=== PATIENT | female | born 1995 | race Caucasian/White ===

== ENCOUNTER 2018-04-12 18:27 | Emergency (ER) | payer OTHER ==
[2018-04-12 18:57] LABS: Basophils % (A) 0 %; Eosinophils # (A) 0.1 k/uL (0-0.7); Eosinophils % (A) 1 %; HGB 14.3 gm/dL (11.4-16.0); Lymphocytes # (A) 1.7 k/uL (1.0-4.8); Lymphocytes % (A) 26 %; MCH 29.1 pg (25.0-35.0); MCHC 34.8 g/dL (31.0-37.0); MCV 83.7 fL (80.0-100.0); Monocytes # (A) 0.4 k/uL (0-1.0); Monocytes % (A) 5 %; Neutrophils # (A) 4.6 k/uL (1.3-7.7); Neutrophils % (A) 67 %; Platelet Count 276 k/uL (150-450); RDW 12.7 % (11.5-15.5); WBC 6.8 k/uL (3.8-10.6)
[2018-04-12 19:09] LABS: ALT 81 U/L (9-52); AST 44 U/L (14-36); Albumin 4.5 g/dL (3.5-5.0); Alkaline Phosphatase 80 U/L (38-126); Anion Gap 13 mmol/L; Blood Urea Nitrogen 11 mg/dL (7-17); Calcium 9.4 mg/dL (8.4-10.2); Carbon Dioxide 24 mmol/L (22-30); Chloride 105 mmol/L (98-107); Glucose 123 mg/dL (74-99); Potassium 3.5 mmol/L (3.5-5.1); Sodium 142 mmol/L (137-145); Total Bilirubin 0.4 mg/dL (0.2-1.3); Total Protein 7.8 g/dL (6.3-8.2)
[2018-04-12 19:19] LABS: Creatine Kinase 34 U/L (30-135)
[2018-04-12 19:22] LABS: Partial Thromboplastin Time 23.8 sec (22.0-30.0); Prothrombin Time 10.1 sec (9.0-12.0)
[2018-04-12 19:31] LABS: Creatine Kinase MB <0.2 ng/mL (0.0-2.4); Troponin I <0.012 ng/mL (0.000-0.034)
[2018-04-12 19:59] VITALS: RESP 18
--- NOTE | 2018-04-12 20:25 | ED ---
Chest Pain HPI - General Chief Complaint: Chest Pain Stated Complaint: Chest pain Time Seen by Provider: 04/12/18 19:52 Source: patient, RN notes reviewed Mode of arrival: wheelchair Limitations: no limitations - History of Present Illness Initial Comments: This is a 23-year-old female who presents to the emergency department with chief complaint of chest pain. Patient reports left-sided sharp, stabbing chest pain started an hour and half prior to arrival. Patient states that the chest pain has become less frequent. She denies any shortness of breath. She does state that she did feel nauseous during the initial episode. She states that there is tenderness to the left chest wall. She denies any injuries or trauma. Denies any history of blood clots. Denies recent fevers or chills, abdominal pain, vomiting or diarrhea. Patient does state that she has a history of hypertension and that her medication has recently been changed. - Related Data Home Medications Medication Instructions Recorded Confirmed Cholecalciferol [Vitamin D3] 1,000 unit PO DAILY 04/12/18 04/12/18 DULoxetine HCL [Cymbalta] 20 mg PO BID 04/12/18 04/12/18 amLODIPine BESYLATE [Norvasc] 10 mg PO DAILY 04/12/18 04/12/18 Allergies Allergy/AdvReac Type Severity Reaction Status Date / Time Latex, Natural Rubber Allergy Unknown Verified 04/12/18 19:25 Childhood Sulfa (Sulfonamide Allergy Unknown Verified 04/12/18 19:25 Antibiotics) Childhood Review of Systems ROS Statement: Those systems with pertinent positive or pertinent negative responses have been documented in the HPI. ROS Other: All systems not noted in ROS Statement are negative. EKG Findings - EKG Comments: EKG Findings:: 18:44:04. Sinus tachycardia. Possible inferior infarct, age undetermined. Ventricular rate 104 bpm, CO interval 136, QRS duration 84, QT/ QTC 326/428 Past Medical History Past Medical History: Hypertension History of Any Multi-Drug Resistant Organisms: None Reported Past Surgical History: Section, Cholecystectomy, Hernia Repair, Tonsillectomy Additional Past Surgical History / Comment(s): eye surgery Past Psychological History: No Psychological Hx Reported Smoking Status: Never smoker Past Alcohol Use History: None Reported Past Drug Use History: None Reported General Exam - General Exam Comments Initial Comments: General: Awake and alert, well-developed; in no apparent distress. HEENT: Head atraumatic, normocephalic. Pupils are equal, round and reactive to light. Extraocular movements intact. Oropharynx moist without erythema or exudate. Neck: Supple. Normal ROM. Cardiovascular: Regular rate and rhythm. No murmurs, rubs or gallops. Chest symmetrical. Tenderness on palpation of left chest wall. Respiratory: Lungs clear to auscultation bilaterally. No wheezes, rales or rhonchi. Normal respiratory effort with no use of accessory muscles. Abdomen: Soft, non-tender, non-distended. No rigidity, rebound or guarding. Normal bowel sounds in all 4 quadrants. Musculoskeletal: Normal ROM, no tenderness bilateral upper and lower extremities. Ambulating normally. Skin: [place], warm and dry without rashes or lesions. Neurological: Alert and oriented x3. CN II-XII grossly intact. Speech is fluent and answers are appropriate. No focal neuro deficits. Psychiatric: Normal mood and affect. No overt signs of depression or anxiety noted. Limitations: no limitations Course Vital Signs 04/12/18 04/12/18 18:30 19:56 Temperature 98 F Pulse Rate 119 H Respiratory 16 18 Rate Blood Pressure 162/101 O2 Sat by Pulse 100 Oximetry Chest Pain MDM - MDM This is a 23-year-old female who presents to the emergency department with chief complaint of chest pain. EKG reveals sinus tachycardia with no evidence of ST segment elevation or depression. CBC and CMP are unremarkable. Cardiac enzymes are within normal limits. Discussed obtaining a d-dimer with patient, however she declines at this time. Patient does have tenderness on palpation of the left chest wall, where she is complaining of having chest pain. On presentation, patient was hypertensive and tachycardia was present, however her vital signs have stabilized. She is no acute distress. Chest x-ray reveals no acute abnormalities. Findings were discussed with patient at bedside. She is in agreement for discharge home. All questions were answered. Chest x-ray impression: No active cardiopulmonary disease. Normal heart. Disposition Clinical Impression: Chest wall pain Disposition: HOME SELF-CARE Condition: Good Instructions: Chest Wall Pain (ED) Additional Instructions: Please follow up with primary care provider within 1-2 days. Return to emergency department if symptoms should worsen or any concerns arise. Is patient prescribed a controlled substance at d/c from ED?: No Referrals: Boaz Toro MD [Primary Care Provider] - 1-2 days Time of Disposition: 21:00
--- NOTE | 2018-04-12 20:26 | XR ---
EXAMINATION TYPE: XR chest 2V DATE OF EXAM: 04/12/2018 COMPARISON: NONE HISTORY: Chest pain TECHNIQUE: Frontal and lateral views of the chest are obtained. FINDINGS: Heart and mediastinum are normal. Lungs are clear. Costophrenic angles are clear. Bony tho rax is intact. There are chest leads. IMPRESSION: No active cardiopulmonary disease. Normal heart.
[2018-04-12 21:12] VITALS: BP 125/78; PULSE 71; TEMP 98.3
== END 2018-04-12 21:11 | disposition home or self-care (01) ==
LOC: EC 18:27
DX: R07.89 Other chest pain (principal); R00.0 Tachycardia, unspecified; R11.0 Nausea; I10 Essential (primary) hypertension; Z88.2 Allergy status to sulfonamides; Z91.040 Latex allergy status; Z79.899 Other long term (current) drug therapy
CPT/HCPCS: 36415; 71046; 80053; 82550; 82553; 83735; 84484; 85025; 85610; 85730; 93005; 99285

== ENCOUNTER 2018-08-23 09:57 | Emergency (ER) | payer OTHER ==
[2018-08-23 10:02] VITALS: BP 146/95; PULSE 104; RESP 20
--- NOTE | 2018-08-23 11:02 | ED ---
General Adult HPI - General Chief complaint: ENT Stated complaint: Swollen throat Time Seen by Provider: 08/23/18 10:20 Source: patient, RN notes reviewed Mode of arrival: ambulatory Limitations: no limitations - History of Present Illness Initial comments: 23-year-old female presented to the emergency room today with multiple complaints. She does admit that she woke up this morning with increased sore throat. States hurts to swallow. She does admit that she's been sick with upper respiratory infection over the last few weeks. Does admit to rhinorrhea. Admits to a cough congestion. Patient does admit that the color has been draining. Patient states that the sore throat started last night. She does admit to some redness to the posterior pharynx that she noticed. 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 She denies any other complaints. Patient denies any recent fever, chills, shortness of breath, chest pain, back pain, abdominal pain, nausea or vomiting, dysuria or hematuria, or any other complaints. - Related Data Home Medications Medication Instructions Recorded Confirmed Cholecalciferol [Vitamin D3] 1,000 unit PO DAILY 04/12/18 08/23/18 amLODIPine BESYLATE [Norvasc] 10 mg PO DAILY 04/12/18 08/23/18 DULoxetine HCL [Cymbalta] 60 mg PO DAILY 08/23/18 08/23/18 Elinest 1 tab PO DAILY 08/23/18 08/23/18 Previous Rx's Medication Instructions Recorded Amoxicillin/Potassium Clav 1 each PO Q12HR #20 tab 08/23/18 [Augmentin 875-125 Tablet] Allergies Allergy/AdvReac Type Severity Reaction Status Date / Time Latex, Natural Rubber Allergy Unknown Verified 08/23/18 10:10 Childhood Sulfa (Sulfonamide Allergy Unknown Verified 08/23/18 10:10 Antibiotics) Childhood Review of Systems ROS Statement: Those systems with pertinent positive or pertinent negative responses have been documented in the HPI. ROS Other: All systems not noted in ROS Statement are negative. Past Medical History Past Medical History: Hypertension History of Any Multi-Drug Resistant Organisms: None Reported Past Surgical History: Section, Cholecystectomy, Hernia Repair, Tonsillectomy Additional Past Surgical History / Comment(s): eye surgery Past Psychological History: No Psychological Hx Reported Smoking Status: Never smoker Past Alcohol Use History: None Reported Past Drug Use History: None Reported General Exam - General Exam Comments Initial Comments: General: The patient is awake and alert, in no distress, and does not appear acutely ill. Eye: There is normal conjunctiva bilaterally. No signs of icterus. Ears, nose, mouth and throat: There are moist mucous membranes and no oral lesions. Patient does have mild redness to the posterior pharynx with no exudate. Uvula is midline but is inflamed and swollen. Patient does have tenderness over the maxillary sinuses. Neck: The neck is supple, there is no tenderness or JVD. Cardiovascular: There is a regular rate and rhythm. No murmur, rub or gallop is appreciated. Respiratory: Lungs are clear to auscultation, respirations are non-labored, breath sounds are equal. No wheezes, stridor, rales, or rhonchi. Musculoskeletal: Patient has full range of motion. Does have some bruising brown color to the anterior aspect of the right knee. Mild tenderness anteriorly. Sensations intact. Pedal pulses 2+. Neurological: A&O x 3. CN II-XII intact, There are no obvious motor or sensory deficits. Coordination appears grossly intact. Speech is normal. Skin: Skin is warm and dry and no rashes or lesions are noted. Psychiatric: Cooperative, appropriate mood & affect, normal judgment. Limitations: no limitations Course Vital Signs 08/23/18 10:00 Temperature 98 F Pulse Rate 104 H Respiratory 20 Rate Blood Pressure 146/95 O2 Sat by Pulse 99 Oximetry Medical Decision Making - Medical Decision Making Patient reexamined at this time shows no signs of distress. Patient x-ray of the right knee was obtained shows no acute fracture dislocation. Advised to continue ice elevate the affected area. Patient does have inflamed uvula. Will be started on antibiotics to cover for sinus infection as she has had increased rhinorrhea and drainage over the last 2 weeks. She states it is a green color. Patient advised follow-up family doctor the next 2 days returning if any symptoms increase or worsen. Disposition Clinical Impression: Acute sinusitis, Uvulitis, Knee contusion Disposition: HOME SELF-CARE Condition: Good Instructions: Uvulitis (ED) Additional Instructions: Please use medication as discussed. Please follow-up with family doctor in the next 2 days of symptoms have not improved. Please return to emergency room if the symptoms increase or worsen or for any other concerns. Prescriptions: Amoxicillin/Potassium Clav [Augmentin 875-125 Tablet] 1 each PO Q12HR #20 tab Is patient prescribed a controlled substance at d/c from ED?: No Referrals: Boaz Toro MD [Primary Care Provider] - 1-2 days Time of Disposition: 11:21
--- NOTE | 2018-08-23 11:05 | XR ---
EXAMINATION TYPE: XR knee complete RT DATE OF EXAM: 08/23/2018 CLINICAL HISTORY: pain TECHNIQUE: Three views of the right knee are obtained. COMPARISON: None. FINDINGS: There is no acute fracture/dislocation. The tri-compartment joint spaces appear within no rmal limits. The overlying soft tissue appears unremarkable. IMPRESSION: There is no acute fracture or dislocation.ICD 10 NO FRACTURE, INITIAL EVALUATION
[2018-08-23 12:17] VITALS: TEMP 98
== END 2018-08-23 12:16 | disposition home or self-care (01) ==
LOC: EC 09:57
DX: S80.01XA Contusion of right knee, initial encounter (principal); J01.90 Acute sinusitis, unspecified; K12.2 Cellulitis and abscess of mouth; I10 Essential (primary) hypertension; Z79.3 Long term (current) use of hormonal contraceptives; Z79.899 Other long term (current) drug therapy; Z88.2 Allergy status to sulfonamides; Z91.040 Latex allergy status; W19.XXXA Unspecified fall, initial encounter
CPT/HCPCS: 99283

== ENCOUNTER 2018-12-22 12:08 | Emergency (ER) | payer BC, OTHER ==
[2018-12-22 12:15] VITALS: RESP 18
[2018-12-22] MEDS ORDERED: SODIUM CHLORIDE 0.9% 500 ML 500 ML IV STA (12:20)
[2018-12-22 13:16] LABS: Basophils % (A) 0 %; Eosinophils # (A) 0.1 k/uL (0-0.7); Eosinophils % (A) 2 %; HGB 13.1 gm/dL (11.4-16.0); Lymphocytes # (A) 1.9 k/uL (1.0-4.8); Lymphocytes % (A) 30 %; MCH 27.5 pg (25.0-35.0); MCHC 33.7 g/dL (31.0-37.0); MCV 81.6 fL (80.0-100.0); Mean Platelet Volume 7.1; Monocytes # (A) 0.3 k/uL (0-1.0); Monocytes % (A) 5 %; Neutrophils # (A) 3.8 k/uL (1.3-7.7); Neutrophils % (A) 60 %; Platelet Count 240 k/uL (150-450); RBC 4.78 m/uL (3.80-5.40); RDW 12.9 % (11.5-15.5); WBC 6.3 k/uL (3.8-10.6)
[2018-12-22 13:25] LABS: ALT 25 U/L (9-52); AST 19 U/L (14-36); Albumin 4.4 g/dL (3.5-5.0); Alkaline Phosphatase 71 U/L (38-126); Amylase 46 U/L (30-110); Anion Gap 9 mmol/L; Blood Urea Nitrogen 8 mg/dL (7-17); Calcium 9.6 mg/dL (8.4-10.2); Carbon Dioxide 21 mmol/L (22-30); Chloride 112 mmol/L (98-107); Glucose 83 mg/dL (74-99); Lipase 38 U/L (23-300); Potassium 3.7 mmol/L (3.5-5.1); Sodium 142 mmol/L (137-145); Total Bilirubin 0.5 mg/dL (0.2-1.3); Total Protein 7.5 g/dL (6.3-8.2)
--- NOTE | 2018-12-22 13:39 | ED ---
Abdominal Pain HPI - General Chief Complaint: Abdominal Pain Stated Complaint: Abd pain Time Seen by Provider: 12/22/18 12:19 Source: patient Mode of arrival: ambulatory Limitations: no limitations - History of Present Illness Initial Comments: 23-year-old female presenting today for chief complaint of midabdominal pain 4 days. Patient states she has had midabdominal pain for the past 4 days she states she is also having loose stools denies vomiting states she has had some nausea. Patient has had mesh repair of a hiatal hernia in the past. Patient has a chest pain shows of breath and leg swelling she denies . She denies dysuria urgency frequency hematuria. Patient states at times the pain radiates towards the back. Patient denies any lower pelvic pain just in the cramping. Patient denies any fever or chills or night sweats. Patient states that she has had congestion cough and upper respiratory symptoms for the past few weeks. Remaining review of systems negative upon arrival patient appears well signs of acute distress. - Related Data Home Medications Medication Instructions Recorded Confirmed Cholecalciferol [Vitamin D3] 1,000 unit PO DAILY 04/12/18 08/23/18 amLODIPine BESYLATE [Norvasc] 10 mg PO DAILY 04/12/18 08/23/18 DULoxetine HCL [Cymbalta] 60 mg PO DAILY 08/23/18 08/23/18 Elinest 1 tab PO DAILY 08/23/18 08/23/18 Previous Rx's Medication Instructions Recorded Amoxicillin/Potassium Clav 1 each PO Q12HR #20 tab 08/23/18 [Augmentin 875-125 Tablet] Allergies Allergy/AdvReac Type Severity Reaction Status Date / Time Latex, Natural Rubber Allergy Unknown Verified 12/22/18 12:15 Childhood Sulfa (Sulfonamide Allergy Unknown Verified 12/22/18 12:15 Antibiotics) Childhood Review of Systems ROS Statement: Those systems with pertinent positive or pertinent negative responses have been documented in the HPI. ROS Other: All systems not noted in ROS Statement are negative. Past Medical History Past Medical History: Hypertension History of Any Multi-Drug Resistant Organisms: None Reported Past Surgical History: Section, Cholecystectomy, Hernia Repair, Tonsillectomy Additional Past Surgical History / Comment(s): eye surgery Past Psychological History: No Psychological Hx Reported Smoking Status: Never smoker Past Alcohol Use History: Occasional Past Drug Use History: None Reported General Exam - General Exam Comments Initial Comments: General: The patient is awake and alert, in no distress, and does not appear acutely ill. Eye: +3 mm pupils are equal, round and reactive to light, extra-ocular movements are intact. No nystagmus. There is normal conjunctiva bilaterally. No signs of icterus. No photophobia Ears, nose, mouth and throat: There are moist mucous membranes and no oral lesions. Oropharynx was not erythematous there is no tonsillar enlargement exudates or lesions. Uvula midline. Tympanic membranes are not erythematous or is no effusions bulging or retraction. No tenderness to palpation of the mastoid. No anterior cervical lymphadenopathy. Rhinorrhea, clear and bilateral nares. No tripoding, no drooling. Neck: The neck is supple, there is no tenderness or JVD. No nuchal rigidity negative Brudzinski and Kernig Cardiovascular: There is a regular rate and rhythm. No murmur, rub or gallop is appreciated. Respiratory: Lungs are clear to auscultation, respirations are non-labored, breath sounds are equal. No wheezes, stridor, rales, or rhonchi. No retractions or abdominal breathing. Gastrointestinal: Soft, non-distended, mild tenderness to patient of the mid abdomen mostly left lower quadrant left mid quadrant, no right lower quadrant pain and no pelvic pain to palpation. Abdomen without masses or organomegaly noted. There is no rebound or guarding present. Bowel sounds are unremarkable. Musculoskeletal: Normal ROM, no tenderness. Strength 5/5. Sensation intact. Radial pulses equal bilaterally 2+. Neurological: A&O x 3. CN II-XII intact, There are no obvious motor or sensory deficits. Coordination appears grossly intact. Speech appears normal, no muffl ing. Skin: Skin is warm and dry and no rashes or lesions are noted. No extremity edema Psychiatric: Cooperative Limitations: no limitations Course Vital Signs 12/22/18 12/22/18 12:13 14:26 Temperature 98.0 F 97.6 F Pulse Rate 70 54 L Respiratory 18 18 Rate Blood Pressure 130/81 129/78 O2 Sat by Pulse 100 100 Oximetry Medical Decision Making - Medical Decision Making 23-year-old female presents today for chief complaint of abdominal pain, loose stools. Patient has a viral upper respiratory symptoms. Patient appears well and nontoxic. There is mild to moderate tenderness of the mid abdomen on examination no upper abdominal epigastric pain. There is no right lower quadrant tenderness there is mild left lower quadrant tenderness or rebound tenderness guarding rigidity. No evidence of peritoneal irritation. Remaining examination unremarkable. Patient's laboratory studies revealed a leukocytosis. HCG negative. CT of the abdomen and pelvis did not reveal an acute intra- abdominal process. At this time feel patient is stable for discharge with outpatient primary care follow-up. Return parameters were discussed at length the patient who verbalizes understanding. Patient was given IV hydration the emergency department. Patient provided with toe. Patient is agreeable care plan as well as the instructions outpatient follow-up. Patient was discharged appearing well after discussed the case with my attending provider Dr. Daniel. - Lab Data Result diagrams: 12/22/18 12:59 12/22/18 12:59 Lab Results 12/22/18 12/22/18 12/22/18 Range/Units 12:59 12:59 13:34 WBC 6.3 (3.8-10.6) k/uL RBC 4.78 (3.80-5.40) m/uL Hgb 13.1 (11.4-16.0) gm/dL Hct 39.0 (34.0-46.0) % MCV 81.6 (80.0-100.0) fL MCH 27.5 (25.0-35.0) pg MCHC 33.7 (31.0-37.0) g/dL RDW 12.9 (11.5-15.5) % Plt Count 240 (150-450) k/uL Neutrophils % 60 % Lymphocytes % 30 % Monocytes % 5 % Eosinophils % 2 % Basophils % 0 % Neutrophils # 3.8 (1.3-7.7) k/uL Lymphocytes # 1.9 (1.0-4.8) k/uL Monocytes # 0.3 (0-1.0) k/uL Eosinophils # 0.1 (0-0.7) k/uL Basophils # 0.0 (0-0.2) k/uL Sodium 142 (137-145) mmol/L Potassium 3.7 (3.5-5.1) mmol/L Chloride 112 H (98-107) mmol/L Carbon Dioxide 21 L (22-30) mmol/L Anion Gap 9 mmol/L BUN 8 (7-17) mg/dL Creatinine 0.55 (0.52-1.04) mg/dL Est GFR (CKD-EPI)AfAm >90 (>60 ml/min/1.73 sqM) Est GFR (CKD-EPI)NonAf >90 (>60 ml/min/1.73 sqM) Glucose 83 (74-99) mg/dL Calcium 9.6 (8.4-10.2) mg/dL Total Bilirubin 0.5 (0.2-1.3) mg/dL AST 19 (14-36) U/L ALT 25 (9-52) U/L Alkaline Phosphatase 71 (38-126) U/L Total Protein 7.5 (6.3-8.2) g/dL Albumin 4.4 (3.5-5.0) g/dL Amylase 46 (30-110) U/L Lipase 38 (23-300) U/L Urine Color Urine Appearance (Clear) Urine pH (5.0-8.0) Ur Specific [place] (1.001-1.035) Urine Protein (Negative) Urine Glucose (UA) (Negative) Urine Ketones (Negative) Urine Blood (Negative) Urine Nitrite (Negative) Urine Bilirubin (Negative) Urine Urobilinogen (<2.0) mg/dL Ur Leukocyte Esterase (Negative) Urine RBC (0-5) /hpf Urine WBC (0-5) /hpf Ur Squamous Epith Cells (0-4) /hpf Urine Bacteria (None) /hpf Urine Mucus (None) /hpf Urine HCG, Qual Not Detected (Not Detectd) 12/22/18 Range/Units 13:34 WBC (3.8-10.6) k/uL RBC (3.80-5.40) m/uL Hgb (11.4-16.0) gm/dL Hct (34.0-46.0) % MCV (80.0-100.0) fL MCH (25.0-35.0) pg MCHC (31.0-37.0) g/dL RDW (11.5-15.5) % Plt Count (150-450) k/uL Neutrophils % % Lymphocytes % % Monocytes % % Eosinophils % % Basophils % % Neutrophils # (1.3-7.7) k/uL Lymphocytes # (1.0-4.8) k/uL Monocytes # (0-1.0) k/uL Eosinophils # (0-0.7) k/uL Basophils # (0-0.2) k/uL Sodium (137-145) mmol/L Potassium (3.5-5.1) mmol/L Chloride (98-107) mmol/L Carbon Dioxide (22-30) mmol/L Anion Gap mmol/L BUN (7-17) mg/dL Creatinine (0.52-1.04) mg/dL Est GFR (CKD-EPI)AfAm (>60 ml/min/1.73 sqM) Est GFR (CKD-EPI)NonAf (>60 ml/min/1.73 sqM) Glucose (74-99) mg/dL Calcium (8.4-10.2) mg/dL Total Bilirubin (0.2-1.3) mg/dL AST (14-36) U/L ALT (9-52) U/L Alkaline Phosphatase (38-126) U/L Total Protein (6.3-8.2) g/dL Albumin (3.5-5.0) g/dL Amylase (30-110) U/L Lipase (23-300) U/L Urine Color Yellow Urine Appearance Clear (Clear) Urine pH 5.5 (5.0-8.0) Ur Specific [place] 1.021 (1.001-1.035) Urine Protein Negative (Negative) Urine Glucose (UA) Negative (Negative) Urine Ketones Negative (Negative) Urine Blood Negative (Negative) Urine Nitrite Negative (Negative) Urine Bilirubin Negative (Negative) Urine Urobilinogen <2.0 (<2.0) mg/dL Ur Leukocyte Esterase Small H (Negative) Urine RBC <1 (0-5) /hpf Urine WBC 2 (0-5) /hpf Ur Squamous Epith Cells 1 (0-4) /hpf Urine Bacteria Rare H (None) /hpf Urine Mucus Occasional H (None) /hpf Urine HCG, Qual (Not Detectd) Disposition Clinical Impression: Abdominal pain, Diarrhea Disposition: HOME SELF-CARE Condition: Good Instructions (If sedation given, give patient instructions): Abdominal Pain (ED) Additional Instructions: Please use medication as discussed. Please follow-up with family doctor in the next 2 days. Please return to emergency room if the symptoms increase or worsen or for any other concerns. Is patient prescribed a controlled substance at d/c from ED?: No Referrals: None,Stated [Primary Care Provider] - 1-2 days Pb Bledsoe MD [REFERRING] - 1-2 days Time of Disposition: 14:40
[2018-12-22 13:48] LABS: Appearance,Urine Clear (Clear); Bacteria,Urine Rare /hpf; Bilirubin,Urine Negative (Negative); Blood,Urine Negative (Negative); Color,Urine Yellow; Glucose,Urine (UA) Negative (Negative); Ketones,Urine Negative (Negative); Leukocyte Esterase,Urine Small (Negative); Mucus,Urine Occasional /hpf; Nitrite,Urine Negative (Negative); PH, Urine 5.5 (5.0-8.0); Protein,Urine Negative (Negative); RBC,Urine <1 /hpf (0-5); Specific Gravity,Urine 1.021 (1.001-1.035); Squamous Epithelial Cell,Urine 1 /hpf (0-4); Urobilinogen,Urine <2.0 mg/dL (<2.0); WBC,Urine 2 /hpf (0-5)
--- NOTE | 2018-12-22 14:22 | CT ---
EXAMINATION TYPE: CT abdomen pelvis w con DATE OF EXAM: 12/22/2018 COMPARISON: HISTORY: Periumbilical pain CT DLP: 1285.1 mGycm Automated exposure control for dose reduction was used. TECHNIQUE: Helical acquisition of images was performed from the lung bases through the pelvis. CONTRAST: Performed without Oral Contrast and with IV Contrast, patient injected with 100 mL of Isovue 300. FINDINGS: LUNG BASES: No significant abnormality is appreciated. LIVER/GB: No significant abnormality is appreciated. The gallbladder is surgically absent. PANCREAS: No significant abnormality is seen. SPLEEN: No significant abnormality is seen. ADRENALS: No significant abnormality is seen. KIDNEYS: No significant abnormality is seen. Delayed imaging was obtained which reveals normal excret ion of contrast of the proximal ureters bilaterally. FREE AIR: No free air is visualized. RETROPERITONEAL ADENOPATHY: None visualized REPRODUCTIVE ORGANS: No significant abnormality is seen. The presence of a contraceptive device is se en surrounding the cervix. URINARY BLADDER: No significant abnormality is seen. PELVIC ADENOPATHY: None visualized. OSSEOUS STRUCTURES: No significant abnormality is seen. BOWEL: No significant abnormality is seen. Appendix is normal. OTHER: A tiny fat filled umbilical hernia is seen measuring 2 mm with normal-appearing surrounding eugene bcutaneous and mesenteric fat. IMPRESSION: No radiographic findings to explain patient's symptoms.
[2018-12-22 14:29] VITALS: BP 129/78; PULSE 54; TEMP 97.6
== END 2018-12-22 14:50 | disposition home or self-care (01) ==
LOC: EC 12:08
DX: R10.32 Left lower quadrant pain (principal); R19.7 Diarrhea, unspecified; D72.829 Elevated white blood cell count, unspecified; R11.0 Nausea; R05 Cough; R09.89 Other specified symptoms and signs involving the circulatory and respiratory systems; I10 Essential (primary) hypertension; Z79.3 Long term (current) use of hormonal contraceptives; Z79.899 Other long term (current) drug therapy; Z91.010 Allergy to peanuts; Z88.2 Allergy status to sulfonamides; Z90.49 Acquired absence of other specified parts of digestive tract
CPT/HCPCS: 36415; 80053; 82150; 83690; 85025; 81001; 81025; 74177; 99284; 96360; Q9967

== ENCOUNTER 2019-05-13 13:39 | Emergency (ER) | payer BC, OTHER ==
[2019-05-13 13:46] VITALS: BP 131/80; PULSE 98; RESP 20; TEMP 98
[2019-05-13] MEDS ORDERED: KETOROLAC 60 MG/2 ML VIAL IM STA (14:09)
[2019-05-13] MEDS ORDERED: ACET/COD 300 MG/30 MG STARTER PACK 6 TAB BTL PO STA (14:09)
--- NOTE | 2019-05-13 14:16 | ED ---
ENT HPI - General Chief complaint: Dental/Oral Stated complaint: dental pain Time Seen by Provider: 05/13/19 14:02 Source: patient Mode of arrival: ambulatory Limitations: no limitations - History of Present Illness Initial comments: Patient is a 24-year-old female presenting to the emergency Department with complaints of dental pain 2 days. Patient states she fractured her upper left tooth a few weeks ago and had intermittent pain since then. Patient states the last 2 days the pain has increased where she is unable to eat or drink right now. She has been trying Motrin without relief. Patient had mild swelling yesterday, none today. Patient denies any fever, chills. Patient states she has an appointment with a dentist tomorrow. Patient has no complaints at this time. Upon arrival to ER, vital signs are stable. - Related Data Home Medications Medication Instructions Recorded Confirmed Cholecalciferol [Vitamin D3] 1,000 unit PO DAILY 04/12/18 08/23/18 amLODIPine BESYLATE [Norvasc] 10 mg PO DAILY 04/12/18 08/23/18 DULoxetine HCL [Cymbalta] 60 mg PO DAILY 08/23/18 08/23/18 Elinest 1 tab PO DAILY 08/23/18 08/23/18 Previous Rx's Medication Instructions Recorded Amoxicillin/Potassium Clav 1 each PO Q12HR #20 tab 08/23/18 [Augmentin 875-125 Tablet] Penicillin V Potassium [Pen Vee K] 500 mg PO QID 7 Days #28 tablet 05/13/19 Allergies Allergy/AdvReac Type Severity Reaction Status Date / Time Latex, Natural Rubber Allergy Unknown Verified 05/13/19 13:46 Childhood Sulfa (Sulfonamide Allergy Unknown Verified 05/13/19 13:46 Antibiotics) Childhood Review of Systems ROS Statement: Those systems with pertinent positive or pertinent negative responses have been documented in the HPI. ROS Other: All systems not noted in ROS Statement are negative. Past Medical History Past Medical History: Hypertension History of Any Multi-Drug Resistant Organisms: None Reported Past Surgical History: Section, Cholecystectomy, Hernia Repair, Tonsillectomy Additional Past Surgical History / Comment(s): eye surgery Past Psychological History: No Psychological Hx Reported Smoking Status: Never smoker Past Alcohol Use History: Occasional Past Drug Use History: None Reported General Exam - General Exam Comments Initial Comments: GENERAL: Well-appearing, well-nourished and in no acute distress. HEAD: Atraumatic, normocephalic. EYES: Pupils equal round and reactive to light, extraocular movements intact, sclera anicteric, conjunctiva are normal. ENT: TMs normal, nares patent, oropharynx clear without exudates. Moist mucous membranes. Partial fracture of tooth #15, erythema of the gumline. No abscess seen at this time. Pain with palpation to overlying skin on the left cheek. No swelling at this time. NECK: Normal range of motion, supple without lymphadenopathy or JVD. LUNGS: Breath sounds clear to auscultation bilaterally and equal. No wheezes rales or rhonchi. HEART: Regular rate and rhythm without murmurs, rubs or gallops. ABDOMEN: Soft, nontender, normoactive bowel sounds. No guarding, no rebound. No masses appreciated. : Deferred EXTREMITIES: Normal range of motion, no pitting or edema. No clubbing or cyanosis. NEUROLOGICAL: Cranial nerves II through XII grossly intact. Normal speech, normal gait. PSYCH: Normal mood, normal affect. SKIN: Warm, Dry, normal turgor, no rashes or lesions noted. Limitations: no limitations Course Vital Signs 05/13/19 13:45 Temperature 98.0 F Pulse Rate 98 Respiratory 20 Rate Blood Pressure 131/80 O2 Sat by Pulse 97 Oximetry Medical Decision Making - Medical Decision Making Patient 24-year-old female presenting with dental pain 2 days. Vital signs are normal, afebrile. Patient will be given Toradol injection as well as Tylenol #3 starter pack and will be started on penicillin. Patient has an appointment with her dentist tomorrow. Patient stable for discharge at this time and she is in agreement with this plan of care. Return parameters were discussed the patient and she verbalized understanding. Case discussed with Dr. Tabares. Disposition Clinical Impression: Fracture of tooth, Dental caries Disposition: HOME SELF-CARE Condition: Stable Instructions (If sedation given, give patient instructions): Dental Abscess (ED) Additional Instructions: Please return to the Emergency Department if symptoms worsen or any other concerns. Take antibiotic as prescribed. Follow-up with dentist tomorrow as discussed. Prescriptions: Penicillin V Potassium [Pen Vee K] 500 mg PO QID 7 Days #28 tablet Is patient prescribed a controlled substance at d/c from ED?: No Referrals: None,Stated [Primary Care Provider] - 1-2 days
== END 2019-05-13 14:30 | disposition home or self-care (01) ==
LOC: EC 13:39
DX: S02.5XXA Fracture of tooth (traumatic), initial encounter for closed fracture (principal); K02.9 Dental caries, unspecified; I10 Essential (primary) hypertension; Z88.2 Allergy status to sulfonamides; Z91.040 Latex allergy status; Z79.3 Long term (current) use of hormonal contraceptives; Z79.899 Other long term (current) drug therapy; X58.XXXA Exposure to other specified factors, initial encounter
CPT/HCPCS: 99283; 96372; J1885

== ENCOUNTER 2019-07-28 15:42 | Emergency (ER) | payer BC, OTHER ==
[2019-07-28 15:49] VITALS: BP 156/101; PULSE 89; RESP 18; TEMP 97.6
== END 2019-07-28 16:34 | disposition left against medical advice (07) ==
LOC: EC 15:42
DX: N93.9 Abnormal uterine and vaginal bleeding, unspecified (principal); R42 Dizziness and giddiness; Z53.21 Procedure and treatment not carried out due to patient leaving prior to being seen by health care provider
CPT/HCPCS: 99499

== ENCOUNTER 2019-07-28 21:24 | Emergency (ER) | payer BC, OTHER ==
[2019-07-28 21:29] VITALS: RESP 18; TEMP 97.2
[2019-07-28] MEDS ORDERED: SODIUM CHLORIDE 0.9% 1,000 ML IV ONE (22:00)
[2019-07-28 22:21] VITALS: BP 119/80; PULSE 66
[2019-07-28 22:21] LABS: Appearance,Urine Clear (Clear); Bilirubin,Urine Negative (Negative); Blood,Urine Moderate (Negative); Calcium Oxalate Crystals,Urine Many /hpf; Color,Urine Yellow; Glucose,Urine (UA) Negative (Negative); Ketones,Urine Negative (Negative); Leukocyte Esterase,Urine Trace (Negative); Mucus,Urine Occasional /hpf; Nitrite,Urine Negative (Negative); PH, Urine 5.5 (5.0-8.0); Protein,Urine Negative (Negative); RBC,Urine 61 /hpf (0-5); Specific Gravity,Urine 1.027 (1.001-1.035); Squamous Epithelial Cell,Urine 1 /hpf (0-4); Urobilinogen,Urine <2.0 mg/dL (<2.0); WBC,Urine 6 /hpf (0-5)
[2019-07-28 22:36] LABS: Basophils % (A) 0 %; Eosinophils # (A) 0.1 k/uL (0-0.7); Eosinophils % (A) 2 %; HCT 37.2 % (34.0-46.0); HGB 12.8 gm/dL (11.4-16.0); Lymphocytes # (A) 2.1 k/uL (1.0-4.8); Lymphocytes % (A) 35 %; MCH 28.9 pg (25.0-35.0); MCHC 34.4 g/dL (31.0-37.0); MCV 83.9 fL (80.0-100.0); Mean Platelet Volume 7.7; Monocytes # (A) 0.4 k/uL (0-1.0); Monocytes % (A) 7 %; Neutrophils # (A) 3.2 k/uL (1.3-7.7); Neutrophils % (A) 54 %; Platelet Count 240 k/uL (150-450); RBC 4.44 m/uL (3.80-5.40); RDW 12.5 % (11.5-15.5)
[2019-07-28 22:43] LABS: ALT 20 U/L (4-34); AST 21 U/L (14-36); African American GFR (CKD) >90 (>60 ml/min/1.73 sqM); Albumin 4.5 g/dL (3.5-5.0); Alkaline Phosphatase 79 U/L (38-126); Anion Gap 8 mmol/L; Blood Urea Nitrogen 13 mg/dL (7-17); Calcium 9.6 mg/dL (8.4-10.2); Carbon Dioxide 23 mmol/L (22-30); Chloride 108 mmol/L (98-107); Glucose 86 mg/dL (74-99); Non-African American GFR(CKD) >90 (>60 ml/min/1.73 sqM); Sodium 139 mmol/L (137-145); Total Bilirubin 0.5 mg/dL (0.2-1.3); Total Protein 7.6 g/dL (6.3-8.2)
--- NOTE | 2019-07-28 22:51 | ED ---
General Adult HPI - General Chief complaint: Vaginal Bleeding Stated complaint: Pelvic Pain, Vaginal Bleeding Time Seen by Provider: 07/28/19 21:31 Source: patient, RN notes reviewed Mode of arrival: ambulatory Limitations: no limitations - History of Present Illness Initial comments: 24 year old female with a past medical history of hypertension presents to the emergency department for a chief complaint of vaginal bleeding. Patient states that she started to have heavy vaginal bleeding last night. States that this has continued into today. States that he is changing a pad every 2 hours. Denies lightheadedness. States there is a chance of as she has not had a period in 2 months. States she has some intermittent pelvic cramping but denies pain otherwise. Patient has a history of a section. She is a female. She has previously seen Dr. Rivas in the past.Patient has no other complaints at this time including shortness of breath, chest pain, abdominal pain, nausea or vomiting, headache, or visual changes. - Related Data Home Medications Medication Instructions Recorded Confirmed Cholecalciferol [Vitamin D3] 1,000 unit PO DAILY 04/12/18 08/23/18 amLODIPine BESYLATE [Norvasc] 10 mg PO DAILY 04/12/18 08/23/18 DULoxetine HCL [Cymbalta] 60 mg PO DAILY 08/23/18 08/23/18 Elinest 1 tab PO DAILY 08/23/18 08/23/18 Previous Rx's Medication Instructions Recorded Amoxicillin/Potassium Clav 1 each PO Q12HR #20 tab 08/23/18 [Augmentin 875-125 Tablet] Penicillin V Potassium [Pen Vee K] 500 mg PO QID 7 Days #28 tablet 05/13/19 Allergies Allergy/AdvReac Type Severity Reaction Status Date / Time Latex, Natural Rubber Allergy Unknown Verified 07/28/19 21:28 Childhood Sulfa (Sulfonamide Allergy Unknown Verified 07/28/19 21:28 Antibiotics) Childhood Review of Systems ROS Statement: Those systems with pertinent positive or pertinent negative responses have been documented in the HPI. ROS Other: All systems not noted in ROS Statement are negative. Past Medical History Past Medical History: Hypertension History of Any Multi-Drug Resistant Organisms: None Reported Past Surgical History: Section, Cholecystectomy, Hernia Repair, Tonsillectomy Additional Past Surgical History / Comment(s): eye surgery Past Psychological History: No Psychological Hx Reported Smoking Status: Never smoker Past Alcohol Use History: Occasional Past Drug Use History: None Reported General Exam Limitations: no limitations General appearance: alert, in no apparent distress Head exam: Present: atraumatic, normocephalic, normal inspection Eye exam: Present: normal appearance, PERRL, EOMI. Absent: scleral icterus, conjunctival injection, periorbital swelling ENT exam: Present: normal exam, mucous membranes moist Neck exam: Present: normal inspection, full ROM. Absent: tenderness, meningismus, lymphadenopathy Respiratory exam: Present: normal lung sounds bilaterally. Absent: respiratory distress, wheezes, rales, rhonchi, stridor Cardiovascular Exam: Present: regular rate, normal rhythm, normal heart sounds. Absent: systolic murmur, diastolic murmur, rubs, gallop, clicks GI/Abdominal exam: Present: soft, normal bowel sounds. Absent: distended, tenderness, guarding, rebound, rigid External exam: Present: normal external exam. Absent: erythema, swelling, lesions, lacerations, ecchymosis, other Speculum exam: Present: vaginal bleeding (mild vaginal bleeding present at this time.). Absent: normal speculum exam, erythema, vaginal discharge, cervical discharge, foreign body, tissue, laceration By manual exam: Present: normal by manual exam. Absent: cervical motion tenderness, adnexal tenderness, adnexal mass, uterine enlargement, uterine tenderness Course Vital Signs 07/28/19 07/28/19 21:26 22:20 Temperature 97.2 F L Pulse Rate 71 66 Respiratory 18 18 Rate Blood Pressure 136/84 119/80 O2 Sat by Pulse 100 99 Oximetry Medical Decision Making - Medical Decision Making CBC CMP unremarkable. Urinalysis does not show any evidence of infection. Th ere is hematuria which is likely secondary to the vaginal bleeding. HCG is negative. No . Pelvic exam revealed only mild vaginal bleeding. Hemoglobin stable. At this time patient can follow up outpatient with primary care or NURSE TRANSITION referral. She'll return here if she has any worsening symptoms. States she has an appointment with her primary care this month. She can also try to follow-up with an NURSE TRANSITION she has seen in the past. - Lab Data Result diagrams: 07/28/19 22:13 07/28/19 22:13 Lab Results 07/28/19 07/28/19 07/28/19 Range/Units 22:04 22:04 22:13 WBC 6.0 (3.8-10.6) k/uL RBC 4.44 (3.80-5.40) m/uL Hgb 12.8 (11.4-16.0) gm/dL Hct 37.2 (34.0-46.0) % MCV 83.9 (80.0-100.0) fL MCH 28.9 (25.0-35.0) pg MCHC 34.4 (31.0-37.0) g/dL RDW 12.5 (11.5-15.5) % Plt Count 240 (150-450) k/uL Neutrophils % 54 % Lymphocytes % 35 % Monocytes % 7 % Eosinophils % 2 % Basophils % 0 % Neutrophils # 3.2 (1.3-7.7) k/uL Lymphocytes # 2.1 (1.0-4.8) k/uL Monocytes # 0.4 (0-1.0) k/uL Eosinophils # 0.1 (0-0.7) k/uL Basophils # 0.0 (0-0.2) k/uL Sodium (137-145) mmol/L Potassium (3.5-5.1) mmol/L Chloride (98-107) mmol/L Carbon Dioxide (22-30) mmol/L Anion Gap mmol/L BUN (7-17) mg/dL Creatinine (0.52-1.04) mg/dL Est GFR (CKD-EPI)AfAm (>60 ml/min/1.73 sqM) Est GFR (CKD-EPI)NonAf (>60 ml/min/1.73 sqM) Glucose (74-99) mg/dL Calcium (8.4-10.2) mg/dL Total Bilirubin (0.2-1.3) mg/dL AST (14-36) U/L ALT (4-34) U/L Alkaline Phosphatase (38-126) U/L Total Protein (6.3-8.2) g/dL Albumin (3.5-5.0) g/dL Urine Color Yellow Urine Appearance Clear (Clear) Urine pH 5.5 (5.0-8.0) Ur Specific [place] 1.027 (1.001-1.035) Urine Protein Negative (Negative) Urine Glucose (UA) Negative (Negative) Urine Ketones Negative (Negative) Urine Blood Moderate H (Negative) Urine Nitrite Negative (Negative) Urine Bilirubin Negative (Negative) Urine Urobilinogen <2.0 (<2.0) mg/dL Ur Leukocyte Esterase Trace H (Negative) Urine RBC 61 H (0-5) /hpf Urine WBC 6 H (0-5) /hpf Ur Squamous Epith Cells 1 (0-4) /hpf Calcium Oxalate Crystal Many H (None) /hpf Urine Mucus Occasional H (None) /hpf Urine HCG, Qual Not Detected (Not Detectd) 07/28/19 Range/Units 22:13 WBC (3.8-10.6) k/uL RBC (3.80-5.40) m/uL Hgb (11.4-16.0) gm/dL Hct (34.0-46.0) % MCV (80.0-100.0) fL MCH (25.0-35.0) pg MCHC (31.0-37.0) g/dL RDW (11.5-15.5) % Plt Count (150-450) k/uL Neutrophils % % Lymphocytes % % Monocytes % % Eosinophils % % Basophils % % Neutrophils # (1.3-7.7) k/uL Lymphocytes # (1.0-4.8) k/uL Monocytes # (0-1.0) k/uL Eosinophils # (0-0.7) k/uL Basophils # (0-0.2) k/uL Sodium 139 (137-145) mmol/L Potassium 4.0 (3.5-5.1) mmol/L Chloride 108 H (98-107) mmol/L Carbon Dioxide 23 (22-30) mmol/L Anion Gap 8 mmol/L BUN 13 (7-17) mg/dL Creatinine 0.57 (0.52-1.04) mg/dL Est GFR (CKD-EPI)AfAm >90 (>60 ml/min/1.73 sqM) Est GFR (CKD-EPI)NonAf >90 (>60 ml/min/1.73 sqM) Glucose 86 (74-99) mg/dL Calcium 9.6 (8.4-10.2) mg/dL Total Bilirubin 0.5 (0.2-1.3) mg/dL AST 21 (14-36) U/L ALT 20 (4-34) U/L Alkaline Phosphatase 79 (38-126) U/L Total Protein 7.6 (6.3-8.2) g/dL Albumin 4.5 (3.5-5.0) g/dL Urine Color Urine Appearance (Clear) Urine pH (5.0-8.0) Ur Specific [place] (1.001-1.035) Urine Protein (Negative) Urine Glucose (UA) (Negative) Urine Ketones (Negative) Urine Blood (Negative) Urine Nitrite (Negative) Urine Bilirubin (Negative) Urine Urobilinogen (<2.0) mg/dL Ur Leukocyte Esterase (Negative) Urine RBC (0-5) /hpf Urine WBC (0-5) /hpf Ur Squamous Epith Cells (0-4) /hpf Calcium Oxalate Crystal (None) /hpf Urine Mucus (None) /hpf Urine HCG, Qual (Not Detectd) Disposition Clinical Impression: Dysfunctional uterine bleeding Disposition: HOME SELF-CARE Condition: Good Instructions (If sedation given, give patient instructions): Dysmenorrhea (ED) Additional Instructions: take Motrin and Tylenol for pain. Please follow-up with primary care in 1-2 days for possible NURSE TRANSITION referral. Please return here to the emergency department if you have any worsening symptoms. Is patient prescribed a controlled substance at d/c from ED?: No Referrals: Pb Bledsoe MD [REFERRING] - 1-2 days Time of Disposition: 22:57
== END 2019-07-28 23:12 | disposition home or self-care (01) ==
LOC: EC 21:24
DX: N93.8 Other specified abnormal uterine and vaginal bleeding (principal); R10.2 Pelvic and perineal pain; I10 Essential (primary) hypertension; Z90.49 Acquired absence of other specified parts of digestive tract; Z79.3 Long term (current) use of hormonal contraceptives; Z79.899 Other long term (current) drug therapy; Z91.040 Latex allergy status; Z88.2 Allergy status to sulfonamides
CPT/HCPCS: 36415; 80053; 81001; 81025; 85025; 96360; 99284

== ENCOUNTER → 2020-03-16 | Outpatient (CLI) | payer BC, OTHER ==
--- NOTE | 2020-03-16 12:47 | US ---
EXAMINATION TYPE: US Transvaginal DATE OF EXAM: 03/16/2020 COMPARISON: ct 12/22/2018 CLINICAL HISTORY: N92.6 Irregular menstruation. Painful cycles per patient TECHNIQUE: . Transabdominal sonographic images of the pelvis were acquired. Transvaginal sonographic images were medically necessary to better assess the following anatomy: Uterus and ovaries Date of LMP: 2 weeks ago EXAM MEASUREMENTS: Uterus: 7.6 x 4.6 x 5.7 cm Endometrial Stripe: 1.2 cm Right Ovary: 2.7 x 1.3 x 1.4 cm Left Ovary: 3.0 x 2.2 x 2.2 cm 1. Uterus: Retroverted Heterogeneous myometrium 2. Endometrium: wnl 3. Right Ovary: wnl 4. Left Ovary: Cyst visualized measuring 2.1 x 1.5 x 1.8 cm 5. Bilateral Adnexa: wnl 6. Posterior cul-de-sac: Tiny amount of free fluid visualized IMPRESSION: 1. Nonspecific heterogeneous myometrium. 2. Small amount of free fluid in the pelvis with a 2.1 cm left ovarian cyst. 3. Endometrial stripe is thickened measuring 1.2 cm correlate with the phase of the patient's menstrual cycle. MTDD
== END | disposition home or self-care (01) ==
LOC: RADUSWWP 12:13
PROVIDERS: ATTEND Family Medicine
DX: N83.202 Unspecified ovarian cyst, left side (principal); R93.89 Abnormal findings on diagnostic imaging of other specified body structures
CPT/HCPCS: 76830

== ENCOUNTER → 2020-09-06 | Outpatient (CLI) | payer BC, OTHER | END | disposition home or self-care (01) | LOC: LABWHC1 08:54 | PROVIDERS: ATTEND Family Medicine | DX: E16.2 Hypoglycemia, unspecified (principal) | CPT/HCPCS: 36415; 82010; 83525; 84206; 84681 ==

== ENCOUNTER 2021-04-09 16:58 | Emergency (ER) | payer BC, OTHER ==
[2021-04-09 17:04] VITALS: RESP 18
--- NOTE | 2021-04-09 17:54 | ED ---
URI HPI - General Chief Complaint: Upper Respiratory Infection Stated Complaint: SOB, Weakness, 9 wks preg Time Seen by Provider: 04/09/21 17:11 Source: patient Mode of arrival: ambulatory Limitations: no limitations - History of Present Illness Initial Comments: 26 year-old female patient presents to the emergency department for evaluation of cough, shortness of breath, and nasal congestion. States she is having headache, sore throat, and bilateral ear pain. Reports chills and body aches. No documented fevers. Reports nausea without vomiting. She is 9 weeks A1. Reports occasional pain to the lower abdomen. No vaginal bleeding or discharge. Denies history of smoking. Reports she has been exposed to COVID at her job. Denies receiving the vaccine. Patient denies any recent rash, fever, chills, diarrhea, constipation, back pain, numbness, tingling, dizziness, weakness, hematuria, dysuria, urinary urgency, urinary frequency, visual c hanges, or any other complaints. - Related Data Home Medications Medication Instructions Recorded Confirmed No Known Home Medications 04/09/21 04/09/21 Allergies Allergy/AdvReac Type Severity Reaction Status Date / Time Latex, Natural Rubber Allergy Unknown Verified 04/09/21 18:10 Childhood Sulfa (Sulfonamide Allergy Unknown Verified 04/09/21 18:10 Antibiotics) Childhood Review of Systems ROS Statement: Those systems with pertinent positive or pertinent negative responses have been documented in the HPI. ROS Other: All systems not noted in ROS Statement are negative. Past Medical History Past Medical History: Hypertension History of Any Multi-Drug Resistant Organisms: None Reported Past Surgical History: Section, Cholecystectomy, Hernia Repair, Tonsillectomy Additional Past Surgical History / Comment(s): eye surgery Past Psychological History: No Psychological Hx Reported Smoking Status: Never smoker Past Alcohol Use History: Occasional Past Drug Use History: None Reported General Exam Limitations: no limitations General appearance: alert, in no apparent distress, other (This is a well- developed, well-nourished adult female patient in no acute distress. Vital signs upon presentation are temperature 98.3F, pulse 86, respirations 18, blood pressure 127/84, pulse ox 99% on room air.) Eye exam: Present: normal appearance, PERRL, EOMI. Absent: scleral icterus, conjunctival injection, periorbital swelling ENT exam: Present: normal exam, normal oropharynx, mucous membranes moist Respiratory exam: Present: normal lung sounds bilaterally. Absent: respiratory distress, wheezes, rales, rhonchi, stridor Cardiovascular Exam: Present: regular rate, normal rhythm, normal heart sounds. Absent: systolic murmur, diastolic murmur, rubs, gallop, clicks GI/Abdominal exam: Present: soft, normal bowel sounds. Absent: distended, tenderness, guarding, rebound, rigid Neurological exam: Present: alert, oriented X3, CN II-XII intact Psychiatric exam: Present: normal affect, normal mood Skin exam: Present: warm, dry, intact, normal color. Absent: rash Course Vital Signs 04/09/21 04/09/21 04/09/21 16:59 19:42 22:08 Temperature 98.3 F 99.9 F H 98.7 F Pulse Rate 86 77 67 Respiratory 18 18 18 Rate Blood Pressure 127/84 125/74 121/83 O2 Sat by Pulse 99 100 100 Oximetry Medical Decision Making - Medical Decision Making 26-year-old female patient presented to the emergency department today for evaluation of upper respiratory symptoms. Physical examination did reveal clear equal lung sounds. Abdomen soft and nontender. She is 9 weeks . While here she did raise concerned due to having some cramping in the lower abdomen. No vaginal bleeding or discharge. We did perform ultrasound which showed a possible subchorionic hemorrhage but there was evidence for viable intrauterine measuring 9 weeks with a heart rate of 172. She did test positive for cold did well here. She was infused with monoclonal antibodies. She'll be discharged follow up with her primary care physician and her CAREER SERVICES ASSISTANT for recheck as soon as possible. Return parameters were discussed in detail. She verbalizes understanding and agrees with this plan. Case discussed with my attending Dr. Benitez. - Lab Data Lab Results 04/09/21 04/09/21 Range/Units 17:54 20:52 Urine Color Yellow Urine Appearance Cloudy H (Clear) Urine pH 6.5 (5.0-8.0) Ur Specific [place] 1.028 (1.001-1.035) Urine Protein Negative (Negative) Urine Glucose (UA) Negative (Negative) Urine Ketones 2+ H (Negative) Urine Blood Negative (Negative) Urine Nitrite Negative (Negative) Urine Bilirubin Negative (Negative) Urine Urobilinogen <2.0 (<2.0) mg/dL Ur Leukocyte Esterase Negative (Negative) Urine RBC 2 (0-5) /hpf Urine WBC 1 (0-5) /hpf Ur Squamous Epith Cells 8 H (0-4) /hpf Urine Bacteria Rare H (None) /hpf Urine Mucus Rare H (None) /hpf Coronavirus (PCR) Detected A (Not Detectd) - Radiology Data Radiology results: report reviewed, image reviewed Ultrasound of the fetus was obtained. Report was reviewed in its entirety. Imp ression by Dr. Angel shows ultrasound gestational age of 9 weeks. There is evidence for some subchorionic abnormality on the left side of the gestational sac and consistent with blood clot. Heart rate is 1 72 bpm Disposition Clinical Impression: COVID, Pelvic pain during Disposition: HOME SELF-CARE Condition: Good Instructions (If sedation given, give patient instructions): Coronavirus Disease 2019 (COVID-19), Abdominal Pain in (ED) Additional Instructions: Follow-up with your CAREER SERVICES ASSISTANT for recheck as possible. Return to the emergency department for any new, worsening, or concerning symptoms. Is patient prescribed a controlled substance at d/c from ED?: No Referrals: None,Stated [Primary Care Provider] - 1-2 days Time of Disposition: 22:01
[2021-04-09] MEDS ORDERED: CASIRIVIMAB/IMDEVIMAB (EUA) 1,200 MG in SODIUM CHLORIDE 0.9% 100 ML IVPB ONE (20:00)
[2021-04-09] MEDS ORDERED: SODIUM CHLORIDE 0.9% 50 ML IVPB ONE (20:30)
--- NOTE | 2021-04-09 21:45 | US ---
EXAMINATION TYPE: Transabdominal DATE OF EXAM: 04/09/2021 9:12 PM COMPARISON: NONE CLINICAL HISTORY: pelvic cramping; 9 weeks. EC patient with COVID complains of pelvic burning x 2 day s; EXAM PERFORMED: Transabdominal (TA) and Transvaginal (TV) EXAM MEASUREMENTS: GESTATIONAL AGE / DATING Physician Established: (9 weeks/2 days) EDC: 11/10/2021 Dates by LMP: (9 weeks/2 days) EDC: 11/10/2021 Dates by First Scan: this is first scan here Dates by Current Scan for: (9 weeks/0 days) EDC: 11/12/2021 MATERNAL ANATOMY Uterus: anteflexed;13.6 x 7.3 x 6.3cm Right Ovary: not seen TA or TV US Left Ovary: 3.7 x 3.2 x 2.2cm Post CDS / Adnexa: wnl Presence of free fluid: no Presence of corpus luteal cyst: in left ovary = 2.2 x 1.9 x 1.8cm Presence of subchorionic bleed: irregular,hypoechoic area noted inferior subchorion on TV US = 4.2 x 2.4 x 2.4cm GESTATION / SURVEY CRL: 2.3cm (9 weeks/0 days) Yolk Sac (normal less than 6mm): 3.9mm Heart Rate: 172 bpm Rhythm: Normal IUP: Single Date of LMP: 02/03/2021 Beta HcG (if available): NA Single, live IUP9 weeks/0 days, EDC: 11/12/2021, [id number]; Presence of subchorionic bleed: irregular, hypoechoic area noted inferior subchorionic area on TV US = 4.2 x 2.4 x 2.4cm as seen on TV US. IMPRESSION: The ultrasound gestational age is 9 weeks. There is evidence for some subchorionic abnormality on the left side of the gestational sac and consistent with blood clot.
[2021-04-09 21:47] LABS: Appearance,Urine Cloudy (Clear); Bacteria,Urine Rare /hpf; Bilirubin,Urine Negative (Negative); Blood,Urine Negative (Negative); Color,Urine Yellow; Glucose,Urine (UA) Negative (Negative); Ketones,Urine 2+ (Negative); Leukocyte Esterase,Urine Negative (Negative); Mucus,Urine Rare /hpf; Nitrite,Urine Negative (Negative); PH, Urine 6.5 (5.0-8.0); Protein,Urine Negative (Negative); RBC,Urine 2 /hpf (0-5); Specific Gravity,Urine 1.028 (1.001-1.035); Squamous Epithelial Cell,Urine 8 /hpf (0-4); Urobilinogen,Urine <2.0 mg/dL (<2.0); WBC,Urine 1 /hpf (0-5)
[2021-04-09 22:13] VITALS: BP 121/83; PULSE 67; TEMP 98.7
== END 2021-04-09 22:13 | disposition home or self-care (01) ==
LOC: EC 16:58
DX: O98.511 Other viral diseases complicating pregnancy, first trimester (principal); U07.1 COVID-19; O26.891 Other specified pregnancy related conditions, first trimester; R10.2 Pelvic and perineal pain; O10.011 Pre-existing essential hypertension complicating pregnancy, first trimester; Z3A.09 9 weeks gestation of pregnancy
CPT/HCPCS: 81001; 87635; 76801; 76817; 96365; 99285; Q0243

== ENCOUNTER → 2021-04-25 | Outpatient (CLI) | payer BC, OTHER ==
--- NOTE | 2021-04-25 12:41 | US ---
EXAMINATION TYPE: Transabdominal DATE OF EXAM: 04/25/2021 12:21 PM COMPARISON: NONE CLINICAL HISTORY: O76 Abn or absent heart sounds,O41.8X90 Subchormic. EXAM PERFORMED: EXAM MEASUREMENTS: GESTATIONAL AGE / DATING Physician Established: (11 weeks/4 days) EDC: 11-10-21 Dates by LMP: (11 weeks/4 days) EDC:11-10-21 Dates by First Scan: : (11 weeks/4 days) EDC: 11-10-21 Dates by Current Scan for: (11 weeks/3 days) EDC: 11-09-21 MATERNAL ANATOMY Uterus: 11.0 x 8.0 x 7.5cm Right Ovary: 2.8 x 1.8 x 2.5cm Left Ovary: 2.1 x 1.4 1.3cm Post CDS / Adnexa: wnl Presence of free fluid: no Presence of subchorionic bleed: 1.6 x 0.2 x 0.7cm GESTATION / SURVEY CRL: 4.4cm (11 weeks/3 days) Yolk Sac (normal less than 6mm): 0.5cm Heart Rate: 169 bpm Rhythm: Normal IUP: Viable IUP Date of LMP: 02-03-21 Beta HcG (if available): Not available at this time IMPRESSION: Single viable intrauterine .
== END | disposition home or self-care (01) ==
LOC: RADUSWWP 11:31
PROVIDERS: ATTEND Obstetrics & Gynecology
DX: Z03.79 Encounter for other suspected maternal and fetal conditions ruled out (principal); Z3A.11 11 weeks gestation of pregnancy
CPT/HCPCS: 76801; 76817

== ENCOUNTER 2021-09-02 06:23 | Outpatient (CLI) | payer BC, OTHER ==
[2021-09-02 06:51] VITALS: BP 134/76; PULSE 82; RESP 16; TEMP 97.4
--- NOTE | 2021-09-09 14:10 | P.MSEPDOC ---
Presenting Problems - Arrival Data Date of Arrival on Unit: 09/02/21 Time of Arrival on Unit: 06:23 Mode of Transport: Ambulatory - Complaint OB-Reason for Admission/Chief Complaint: Decreased Movement Comment: pt. present to tirage due to decrease movment since 630pm, pt. states she. was asleep last night and woke up and is only feeling flutters nothing like how she. usually feels. Medical History - Information : 2 Para: 1 Term: 1 : 0 Abortions: Spontaneous or Elective: 0 Number of Living Children: 0 - Gestational Age Gestational Age by ELODIA (wks/days): 30 Weeks and 1 Days Review of Systems - Review of Systems Constitutional: No problems Breast: No problems ENT: No problems Cardiovascular: No problems Respiratory: No problems Gastrointestinal: No problems Genitourinary: No problems Musculoskeletal: No problems Neurological: No problems Skin: No problems Vital Signs - Temperature Temperature: 97.4 F Temperature Source: Temporal Artery Scan - Pulse Pulse Oximetery Pulse Rate: 82 Pulse Assessment Method: Automatic Cuff - Respirations Respiratory Rate: 16 Oxygen Delivery Method: Room Air - Blood Pressure Right Arm Blood Pressure: 134/76 Blood Pressure Mean: 95 Blood Pressure Source: Automatic Cuff Medical Screen Scoring - Assessment - Baby A Baseline FHR: 125 Heart Rate - NICHD Category: Category I (Normal) NST: Reactive Maternal Triage Index - Maternal Triage Index Presenting for scheduled procedure w/no complaint: No - Stat/Priority 1 Stat Priority 1: No - Urgent/Priority 2 Urgent Priority 2: Yes Provider Notified: Chan Jaimes Provider Notified Time: 06:41 Criteria Met for Priority 2: pt. present to triage due to decrease movment, reactive NST, and patient feeling baby move now, orders to discharge patient home Disposition - Disposition OB Disposition: Discharge to home Discharge Date: 09/02/21 Discharge Time: 06:54 I agree with the RN Medical Screening Exam: Yes Physician's MSE Comment: I have neither seen nor examined the patient. Case reviewed; plan agreed upon as documented in EMR&OBIX.: Yes Diagnosis: RELATED CONDITIONS, UNSPECIFIED, THIRD TRIMESTER
== END 2021-09-02 06:54 | disposition home or self-care (01) ==
LOC: FBPOP 06:23
PROVIDERS: ATTEND Obstetrics & Gynecology
DX: O36.8130 Decreased fetal movements, third trimester, not applicable or unspecified (principal); Z3A.30 30 weeks gestation of pregnancy; Z91.040 Latex allergy status; Z88.2 Allergy status to sulfonamides
CPT/HCPCS: 59025; 99213

== ENCOUNTER 2021-10-03 20:19 | Outpatient (CLI) | payer BC, OTHER ==
[2021-10-03 21:46] VITALS: BP 126/73; PULSE 95; RESP 16; TEMP 97
--- NOTE | 2021-10-28 10:35 | P.MSEPDOC ---
Presenting Problems - Arrival Data Date of Arrival on Unit: 10/03/21 Time of Arrival on Unit: 20:19 Mode of Transport: Ambulatory - Complaint OB-Reason for Admission/Chief Complaint: Rule Out PROM Comment: Patient states that water broke at 1330 before work and had had 3 gushes while. at work today. Patient denies feeling any contractions. Patient is scheduled for a. on 11/08 due to being breech. Medical History - Information : 2 Para: 1 Term: 1 : 0 Abortions: Spontaneous or Elective: 0 Number of Living Children: 1 - Gestational Age Gestational Age by ELODIA (wks/days): 34 Weeks and 4 Days - History Complications: Breech, Prior Review of Systems - Review of Systems Constitutional: No problems Breast: No problems ENT: No problems Cardiovascular: No problems Respiratory: No problems Gastrointestinal: No problems Genitourinary: No problems Musculoskeletal: No problems Neurological: No problems Skin: No problems Vital Signs - Temperature Temperature: 97.0 F Temperature Source: Temporal Artery Scan - Pulse Right Brachial Pulse Rate: 95 Pulse Assessment Method: Automatic Cuff - Respirations Respiratory Rate: 16 Oxygen Delivery Method: Room Air O2 Sat by Pulse Oximetry: 99 - Blood Pressure Right Arm Blood Pressure: 126/73 Blood Pressure Mean: 90 Blood Pressure Source: Automatic Cuff Medical Screen Scoring - Cervical Exam Membranes: Intact - Assessment - Baby A Baseline FHR: 120 Heart Rate - NICHD Category: Category I (Normal) NST: Reactive Physician Notification - Physician Notified Physician Notified Date: 10/03/21 Physician Notified Time: 20:59 Physician: Kristin Kyle New Order Received: Yes - Notification Comment Comment: Dr. Kyle called with report that patient presents to triage with c/o rom at. 1330. Reactive nst, no contraction per toco/pt/palpation, amnisure negative, and. cervical exam of closed/thick/high. Patient approved for andres sylvester, see Dr. Townsend on10/06. Maternal Triage Index - Maternal Triage Index Presenting for scheduled procedure w/no complaint: No - Stat/Priority 1 Stat Priority 1: No - Urgent/Priority 2 Urgent Priority 2: No - Prompt/Priority 3 Prompt Priority 3: Yes Criteria Met for Priority 3: Patient 34 4/7 states that water broke at 1330 before work and had had 3 gushes while. at work today. Patient denies feeling any contractions. Disposition - Disposition OB Disposition: Physician follow up in office, Discharge to home Discharge Date: 10/03/21 Discharge Time: 21:00 I agree with the RN Medical Screening Exam: Yes Case reviewed; plan agreed upon as documented in EMR&OBIX.: Yes Comments: Patient was neither seen nor examined by me Diagnosis: FALSE LABOR BEFORE 37 COMPLETED WEEKS OF GEST, THIRD TRI
== END 2021-10-03 21:00 ==
LOC: FBPOP 20:19
PROVIDERS: ATTEND Obstetrics & Gynecology
DX: O47.03 False labor before 37 completed weeks of gestation, third trimester (principal); Z3A.34 34 weeks gestation of pregnancy; Z91.040 Latex allergy status; Z88.2 Allergy status to sulfonamides
CPT/HCPCS: 59025; 99213

== ENCOUNTER → 2021-10-18 | Outpatient (CLI) | payer BC, OTHER ==
[2021-10-18 18:44] LABS: Creatinine 24 Hour,Urine 1549.8 mg/24hr (800.0-1800.0)
[2021-10-18 23:34] LABS: Basophils # (A) 0.02 X 10*3/uL (0.00-0.10); Basophils % (A) 0.2 %; Eosinophils # (A) 0.03 X 10*3/uL (0.04-0.35); Eosinophils % (A) 0.2 %; HCT 30.1 % (37.2-46.3); HGB 9.9 g/dL (12.0-15.0); Immature Grans, Automated 0.8 %; Lymphocytes # (A) 1.34 X 10*3/uL (0.90-5.00); Lymphocytes % (A) 10.9 %; MCH 28.5 pg (27.0-32.0); MCHC 32.9 g/dL (32.0-37.0); MCV 86.7 fL (80.0-97.0); Mean Platelet Volume 11.8 fL (9.5-12.2); Monocytes # (A) 0.79 X 10*3/uL (0.20-1.00); Monocytes % (A) 6.4 %; NRBC Per 100 WBC 0 /100 WBCS (0.0-0.0); Neutrophils # (A) 10.01 X 10*3/uL (1.80-7.70); Neutrophils % (A) 81.5 %; Platelet Count 203 X 10*3/uL (140-440); RBC 3.47 X 10*6/uL (4.10-5.20); RDW 12.6 % (11.5-14.5); WBC 12.29 X 10*3/uL (4.50-10.00)
[2021-10-19 02:18] LABS: African American GFR (CKD) 148.9 (60.0-200.0); Blood Urea Nitrogen 4.1 mg/dL (9.0-27.0); Non-African American GFR(CKD) 128.5 (60.0-200.0)
[2021-10-19 09:15] LABS: Total Protein 24 Hour,Urine 11.1 mg/dL (0.0-165.0)
[2021-10-20 22:35] LABS: Total Volume 24 Hour,Urine 2700 mL
== END | disposition home or self-care (01) ==
LOC: LABWHC1 16:22
PROVIDERS: ATTEND Obstetrics & Gynecology
DX: O13.9 Gestational [pregnancy-induced] hypertension without significant proteinuria, unspecified trimester (principal); Z3A.00 Weeks of gestation of pregnancy not specified
CPT/HCPCS: 36415; 81050; 82565; 82575; 84156; 84450; 84460; 84520; 84550; 85025

== ENCOUNTER 2021-10-28 10:46 | Outpatient (CLI) | payer BC, OTHER ==
[2021-10-28 12:10] LABS: Appearance,Urine Clear (Clear); Bilirubin,Urine Negative (Negative); Blood,Urine Negative (Negative); Color,Urine Yellow; Glucose,Urine (UA) Negative (Negative); Ketones,Urine Negative (Negative); Leukocyte Esterase,Urine Negative (Negative); Nitrite,Urine Negative (Negative); PH, Urine 6.5 (5.0-8.0); Protein,Urine Trace (Negative); Specific Gravity,Urine 1.017 (1.001-1.035); Urobilinogen,Urine <2.0 mg/dL (<2.0)
[2021-10-28 12:13] LABS: Basophils % (A) 0 %; Eosinophils % (A) 0 %; HCT 30.3 % (34.0-46.0); HGB 9.8 gm/dL (11.4-16.0); Hypochromasia Slight; Lymphocytes # (A) 1.5 k/uL (1.0-4.8); Lymphocytes % (A) 14 %; MCH 28.2 pg (25.0-35.0); MCHC 32.4 g/dL (31.0-37.0); MCV 86.9 fL (80.0-100.0); Mean Platelet Volume 10.4; Monocytes # (A) 0.6 k/uL (0-1.0); Monocytes % (A) 6 %; Neutrophils % (A) 78 %; Platelet Count 168 k/uL (150-450); Poikilocytosis Slight; RBC 3.48 m/uL (3.80-5.40); RDW 13.6 % (11.5-15.5); WBC 10.3 k/uL (3.8-10.6)
[2021-10-28 12:29] LABS: ALT 11 U/L (4-34); AST 18 U/L (14-36)
[2021-10-28 13:53] VITALS: BP 128/72; PULSE 88; RESP 17
--- NOTE | 2021-11-01 09:09 | P.MSEPDOC ---
Presenting Problems - Arrival Data Date of Arrival on Unit: 10/28/21 Time of Arrival on Unit: 10:46 Mode of Transport: Ambulatory - Complaint OB-Reason for Admission/Chief Complaint: Other Comment: pt came into triage for reaction to medication Medical History - Information : 3 Para: 1 Term: 1 : 0 Abortions: Spontaneous or Elective: 1 Number of Living Children: 1 - Gestational Age Gestational Age by ELODIA (wks/days): 38 Weeks and 1 Days - History Complications: Prior Review of Systems - Review of Systems Constitutional: No problems Breast: No problems ENT: No problems Cardiovascular: No problems Respiratory: No problems Gastrointestinal: No problems Genitourinary: No problems Musculoskeletal: No problems Neurological: No problems Skin: No problems Vital Signs - Pulse Right Brachial Pulse Rate: 88 Pulse Assessment Method: Automatic Cuff - Respirations Respiratory Rate: 17 Oxygen Delivery Method: Room Air - Blood Pressure Right Arm Blood Pressure: 128/72 Blood Pressure Mean: 90 Blood Pressure Source: Automatic Cuff Medical Screen Scoring - Assessment - Baby A Baseline FHR: 120 Heart Rate - NICHD Category: Category I (Normal) NST: Reactive Physician Notification - Physician Notified Physician Notified Date: 10/28/21 Physician Notified Time: 11:39 Physician: Kristin Kyle - Notification Comment Comment: [facility] labs run, all wnl, bp's wnl, discharged pt with orders to take bp's 2 times a day,and follow up in the office on sunday with record of bp's over the weekend, continue to take labetalol Maternal Triage Index - Maternal Triage Index Presenting for scheduled procedure w/no complaint: No - Stat/Priority 1 Stat Priority 1: No - Urgent/Priority 2 Urgent Priority 2: No - Prompt/Priority 3 Prompt Priority 3: No - Non-Urgent/Priority 4 Non-Urgent Priority 4: Yes Criteria Met for Priority 4: 38 1/7 weeks ga, c/o reaction to labetolol with itching, sob, nausea and swelling Disposition - Disposition OB Disposition: Admit, Physician follow up in office, Discharge to home, Written follow up instructions reviewed Discharge Date: 10/28/21 Discharge Time: 13:00 I agree with the RN Medical Screening Exam: Yes Case reviewed; plan agreed upon as documented in EMR&OBIX.: Yes Comments: Patient was neither seen nor examined by me Diagnosis: RELATED CONDITIONS, UNSPECIFIED, THIRD TRIMESTER
== END 2021-10-28 13:00 | disposition home or self-care (01) ==
LOC: FBPOP 10:46
PROVIDERS: ATTEND Obstetrics & Gynecology
DX: O99.323 Drug use complicating pregnancy, third trimester (principal); L29.9 Pruritus, unspecified; R11.0 Nausea; Z3A.38 38 weeks gestation of pregnancy; Z91.040 Latex allergy status; Z88.2 Allergy status to sulfonamides
CPT/HCPCS: 59025; 81003; 84450; 84460; 84550; 85025; 99214

== ENCOUNTER 2022-12-17 11:21 | Emergency (ER) | payer BC, OTHER ==
[2022-12-17 11:41] VITALS: RESP 16
--- NOTE | 2022-12-17 12:39 | ED ---
General Adult HPI - General Chief complaint: Extremity Injury, Lower Stated complaint: lt ankle injury Time Seen by Provider: 12/17/22 12:27 Source: patient, RN notes reviewed, old records reviewed Mode of arrival: EMS Limitations: no limitations - History of Present Illness Initial comments: 27-year-old female with left ankle pain. Patient had inverted at the left ankle and heard a popping noise with sudden severe pain to the left ankle. No head neck or back trauma. No other injury. - Related Data Home Medications Medication Instructions Recorded Confirmed Aspirin 81 mg PO DAILY 08/08/21 11/08/21 Vit No.180/Iron/Folic 1 tab PO DAILY 08/08/21 11/08/21 [ Plus Tablet] Previous Rx's Medication Instructions Recorded Ibuprofen [Motrin] 600 mg PO Q6H tab 11/10/21 Allergies Allergy/AdvReac Type Severity Reaction Status Date / Time Latex, Natural Rubber Allergy Rash/Hives Verified 11/08/21 10:13 Sulfa (Sulfonamide Allergy Swelling Verified 11/08/21 10:13 Antibiotics) Review of Systems ROS Statement: Those systems with pertinent positive or pertinent negative responses have been documented in the HPI. ROS Other: All systems not noted in ROS Statement are negative. Past Medical History Past Medical History: Hypertension Additional Past Medical History / Comment(s): hx hiatal hernia, History of Any Multi-Drug Resistant Organisms: None Reported Past Surgical History: Section, Cholecystectomy, Hernia Repair, Tonsillectomy Additional Past Surgical History / Comment(s): eye surgery, hiatal hernia surgery Past Anesthesia/Blood Transfusion Reactions: No Reported Reaction Past Psychological History: Anxiety, Depression Smoking Status: Never smoker Past Alcohol Use History: Occasional Past Drug Use History: None Reported - Past Family History Mother Family Medical History: No Reported History Additional Family Medical History / Comment(s): Stroke Father Family Medical History: Myocardial Infarction ([place]) General Exam Limitations: no limitations General appearance: alert, in no apparent distress Head exam: Present: atraumatic, normocephalic Eye exam: Present: normal appearance, PERRL Neck exam: Present: normal inspection. Absent: tenderness, meningismus Respiratory exam: Present: normal lung sounds bilaterally. Absent: respiratory distress, wheezes Cardiovascular Exam: Present: regular rate, normal rhythm Extremities exam: Present: joint swelling (Swelling to the left ankle with tenderness over the lateral malleolus. 2+ DP pulse. Range of motion limited by pain, patient is able to move all 5 digits.) Course Vital Signs 12/17/22 11:38 Temperature 97.6 F Pulse Rate 65 Respiratory 16 Rate Blood Pressure 149/93 O2 Sat by Pulse 99 Oximetry Procedures - Orthopedic Splinting/Casting Injury #1 Side: left Lower Extremity Injury Location: ankle Lower Extremity Immobilizer: stirrup splint Other Orthopedic Equipment: crutches Medical Decision Making - Medical Decision Making Was pt. sent in by a medical professional or institution (, PA, HEALTH CARE CONSULTANT, urgent care, hospital, or prison...) When possible be specific @ -No Did you speak to anyone other than the patient for history (EMS, parent, family, police, friend...)? What history was obtained from this source @Patient's who is at bedside Did you review nursing and triage notes (agree or disagree)? Why? @ -I reviewed and agree with nursing and triage notes Were old charts reviewed (outside hosp., previous admission, EMS record, old EKG, old radiological studies, urgent care reports/EKG's, prison records)? Report findings @ -No old charts were reviewed Differential Diagnosis (chest pain, altered mental status, abdominal pain women, abdominal pain men, vaginal bleeding, weakness, fever, dyspnea, syncope, headache, dizziness, GI bleed, back pain, seizure, CVA, palpatations, mental health, musculoskeletal)? @ -Differential Musculoskeletal Muscular strain, contusion, ligament sprain, fracture, arthritis, septic arthritis, bursitis, cellulitis, muscle spasm, nerve compression, DVT, arterial occlusion, herpes zoster, electrolyte abnormality, tumor.... This is not meant to be in all inclusive list EKG interpreted by me (3pts min.). @ -As above X-rays interpreted by me (1pt min.). @Reviewed and interpreted by myself, lateral malleolus fracture, no dislocation CT interpreted by me (1pt min.). @ -None done U/S interpreted by me (1pt. min.). @ -None done What testing was considered but not performed or refused? (CT, X-rays, U/S, labs)? Why? @ -None What meds were considered but not given or refused? Why? @ -None Did you discuss the management of the patient with other professionals (professionals i.e. , PA, HEALTH CARE CONSULTANT, lab, RT, psych nurse, mental health social worker, body maker, teacher, medical scientific officer, case management director)? Give summary @ -No Was smoking cessation discussed for >3mins.? @ -No Was critical care preformed (if so, how long)? @ -No Were there social determinants of health that impacted care today? How? (Homelessness, low income, unemployed, alcoholism, drug addiction, transportation, low edu. Level, literacy, decrease access to med. care, long term, rehab)? @ -No Was there de-escalation of care discussed even if they declined (Discuss DNR or withdrawal of care, Hospice)? DNR status @ -No What co-morbidities impacted this encounter? (DM, HTN, Smoking, COPD, CAD, Cancer, CVA, ARF, Chemo, Hep., AIDS, mental health diagnosis, sleep apnea, morbid obesity)? @ -None Was patient admitted / discharged? Hospital course, mention meds given and route, prescriptions, significant lab abnormalities, going to OR and other pertinent info. @27-year-old female with left ankle injury, x-ray showing a distal fibular fracture. Patient placed in a splint and given crutches. Pain control with Tylenol Motrin. She will ice and elevate and follow up with orthopedics. Undiagnosed new problem with uncertain prognosis? @ -No Drug Therapy requiring intensive monitoring for toxicity (Heparin, Nitro, Insulin, Cardizem)? @ -No Were any procedures done? @Yes, splint Diagnosis/symptom? @Distal fibular fracture Acute, or Chronic, or Acute on Chronic? @Acute Uncomplicated (without systemic symptoms) or Complicated (systemic symptoms)? @Uncomplicated Side effects of treatment? @ -No Exacerbation, Progression, or Severe Exacerbation? @ -No Poses a threat to life or bodily function? How? (Chest pain, [place], [place], pneumonia, PE, COPD, DKA, ARF, appy, cholecystitis, CVA, Diverticulitis, Homicidal, Suicidal, threat to staff... and all critical care pts) @ -No Disposition Clinical Impression: Fracture of ankle Disposition: HOME SELF-CARE Condition: Good Instructions (If sedation given, give patient instructions): Ankle Fracture (ED) Is patient prescribed a controlled substance at d/c from ED?: No Referrals: Jacob Armstrong MD [Primary Care Provider] - 1-2 days Edgar Bell MD [STAFF PHYSICIAN] - 1-2 days Time of Disposition: 12:38
[2022-12-17 12:57] VITALS: BP 146/86; PULSE 66; TEMP 98.2
--- NOTE | 2022-12-17 13:02 | XR ---
EXAMINATION TYPE: XR ankle complete LT DATE OF EXAM: 12/17/2022 COMPARISON: None HISTORY: Injury, pain TECHNIQUE: 3 view left ankle FINDINGS: There is a transverse fracture of the distal fibula. Overlying soft tissue swelling is pres ent. The ankle mortise appears intact. IMPRESSION: 1. Transverse fracture distal fibular fracture
== END 2022-12-17 13:14 | disposition home or self-care (01) ==
LOC: EC 11:21
DX: S82.892A Other fracture of left lower leg, initial encounter for closed fracture (principal); I10 Essential (primary) hypertension; Z79.82 Long term (current) use of aspirin; Z86.59 Personal history of other mental and behavioral disorders; Z88.1 Allergy status to other antibiotic agents; Z88.2 Allergy status to sulfonamides; Z91.040 Latex allergy status; Z90.49 Acquired absence of other specified parts of digestive tract; X58.XXXA Exposure to other specified factors, initial encounter
CPT/HCPCS: 29515; 99284

== ENCOUNTER 2022-12-22 10:37 | Day surgery (SDC) | payer OTHER ==
[2022-12-19 11:50] VITALS: BMI 42.0
[~2022-12-22 10:37] MED LIST: DEXAMETHASONE SOD PHOSPHATE 4 MG/ML 1 ML VIAL IV ONE; HYDROmorphone 0.5 MG/0.5 ML SYRINGE IVP PRN; LACTATED RINGERS 1,000 ML IV SCH; MIDAZOLAM 2 MG/2 ML VIAL IV PRN; ONDANSETRON 4 MG/2 ML VIAL IVP ONE; SCOPOLAMINE 1 MG/72 HR PATCH TRANSDERM ONE
[2022-12-22] MEDS ORDERED: fentaNYL (PF) 50 MCG/ML 2 ML AMP IVP ONE (11:29)
[2022-12-22] MEDS ORDERED: LIDOCAINE 2% INJ 20 MG/ML (2 ML VIAL) ONE (12:30)
[2022-12-22] MEDS ORDERED: SODIUM CHLORIDE 0.9% (PF) 10 ML VIAL ONE (12:30)
[2022-12-22] MEDS ORDERED: PROPOFOL 10 MG/ML 20 ML VIAL IV ONE (12:30)
[2022-12-22] MEDS ORDERED: BUPIVACAINE (PF) 0.5% 30 ML VIAL ONE (12:30)
[2022-12-22] MEDS ORDERED: GLYCOPYRROLATE 0.2 MG/ML 2 ML VIAL ONE (12:30)
[2022-12-22] MEDS ORDERED: fentaNYL (PF) 50 MCG/ML 2 ML AMP ONE (12:30)
[2022-12-22] MEDS ORDERED: ceFAZolin 1,000 MG in SODIUM CHLORIDE 0.9% 1,000 ML IRRIGATION ONE (12:35)
[2022-12-22] MEDS ORDERED: LACTATED RINGERS 1,000 ML IV ONE (12:40)
--- NOTE | 2022-12-22 13:33 | FL ---
EXAMINATION TYPE: FL guidance operating room, XR ankle limited LT DATE OF EXAM: 12/22/2022 COMPARISON: NONE HISTORY: 27-year-old female displaced lateral malleolus fracture FINDINGS: Intraoperative fluoroscopy during left ankle ORIF. FLUOROSCOPY Fluoroscopy time of 1 minute 1 seconds was used during left ankle ORIF. 2 image/s document/s the pro cedure. DAP: 0.8924 Gycm2 IMPRESSION: Intraoperative fluoroscopy as above.
--- NOTE | 2022-12-22 13:36 | P.OP ---
Date of Procedure: 12/22/22 Preoperative Diagnosis: Displaced lateral malleolar fracture left ankle Postoperative Diagnosis: Same Procedure(s) Performed: Open reduction with internal fixation left lateral malleolar fracture Implants: 5.6 mm x 50 mm cannulated screw Anesthesia: COLT Surgeon: Dennis Ervin Estimated Blood Loss (ml): 1 Pathology: none sent Condition: stable Disposition: PACU Description of Procedure: Prior to the patient being brought to the operative room, anesthesia administered a nerve block on the left lower extremity. The patient was brought into the operative room and placed on table in supine position. Timeout was taken to confirm correct patient identifiers, correct laterally surgery, and correct procedure. Once all staff in the room were in agreement with the timeout, the patient was induced and placed under general anesthesia. A well- padded tourniquet was placed on the left thigh and a bump underneath the left hip to internally rotate the left leg. The left leg was then prepped and draped usual manner. The leg was exsanguinated and the tourniquet inflated to 250 motors mercury. Under fluoroscopic guidance the distal tip of the lateral malleolus was identified with metallic markers. A metallic marker was also used to draw parallel line over the midshaft of the fibula. At that point a small incision was made distal to the tip of the fibula and bluntly dissected through the subcutaneous tissue. A guidewire for 5.6 mm screw was then inserted the tip of the lateral malleolus and advanced into the medullary canal under direct fluoroscopic visualization. Once wire had been advanced adequately, a 5.6 mm x 50 mm cannulated screw was inserted across the wire and advanced until the threaded head engaged the cortex of the tip of the lateral malleolus. Once the screw was tightened fluoroscopy was used to check the overall alignment of the fracture. There was excellent compression at the fracture site and near anatomic reduction. The guidewire was removed and the wound flushed with antibiotic saline. 3-0 nylon was used to close the skin. Nonadherent gauze and a dry sterile dressing applied left ankle. The tourniquet was released and capillary refill return to all digits on the left foot. The patient was then placed in a below-knee fracture boot with ankle neutral position. Anesthesia was reversed and the patient was taken recovery with vital signs stable
[2022-12-22 13:37] VITALS: TEMP 97
[2022-12-22 14:18] VITALS: RESP 16
--- NOTE | 2022-12-22 14:24 | P.ANPRN ---
Procedure Note - Anesthesia - Nerve Block Performed Left Popliteal Single Time Out Performed: Yes (1129) Date of Procedure: 12/22/22 Procedure Start Time: 11:30 Procedure Stop Time: 11:34 Location of Patient: PreOp Indication: Acute Post-Operative Pain, Requested by Surgeon Specifically requested for management of pain by DrAakash: Dennis Ervin Sedation Type: Sedate with meaningful contact maintained Preparation: Sterile Prep Position: Supine Catheter: None Needle Types: Pajunk Needle Gauge: 21 Ultrasound used to visualize needle placement: Yes Ultrasound used to observe medication spread: Yes Injectate: 0.5% Ropivacaine (see comment for volume) (15cc + 15cc nacl pf) Blood Aspirated: No Pain Paresthesia on Injection Noted: No Resistance on Injection: Normal Image Stored and Saved: Yes Events: Uneventful and Well Tolerated
--- NOTE | 2022-12-22 14:25 | P.ANPRN ---
Procedure Note - Anesthesia - Nerve Block Performed Left Adductor Canal Single Time Out Performed: Yes (1129) Date of Procedure: 12/22/22 Procedure Start Time: 11:35 Procedure Stop Time: 11:38 Location of Patient: PreOp Indication: Acute Post-Operative Pain, Requested by Surgeon Specifically requested for management of pain by DrAakash: Dennis Ervin Sedation Type: Sedate with meaningful contact maintained Preparation: Sterile Prep Position: Supine Catheter: None Needle Types: Pajunk Needle Gauge: 21 Ultrasound used to visualize needle placement: Yes Ultrasound used to observe medication spread: Yes Injectate: 0.5% Ropivacaine (see comment for volume) (15cc +15cc nacl pf) Blood Aspirated: No Pain Paresthesia on Injection Noted: No Resistance on Injection: Normal Image Stored and Saved: Yes Events: Uneventful and Well Tolerated
[2022-12-22 14:58] VITALS: BP 125/83; PULSE 72
== END 2022-12-22 14:55 | disposition home or self-care (01) ==
LOC: OR 10:37
PROVIDERS: ATTEND Podiatrist
DX: S82.62XA Displaced fracture of lateral malleolus of left fibula, initial encounter for closed fracture (principal); W10.1XXA Fall (on)(from) sidewalk curb, initial encounter; G89.18 Other acute postprocedural pain; I10 Essential (primary) hypertension; F41.9 Anxiety disorder, unspecified; F32.A Depression, unspecified; F10.20 Alcohol dependence, uncomplicated; Z79.899 Other long term (current) drug therapy; Z88.2 Allergy status to sulfonamides; Z91.040 Latex allergy status
CPT/HCPCS: 27792; 64447; 64445; 81025; 73600; C1713; J2250; J1100; J0690 ×2; J2405; J3010; J2704; J2001